=== PATIENT | female | born 1980 | race Caucasian/White ===

== ENCOUNTER 2022-05-27 11:44 | Emergency (ER) | payer MEDICAID ==
[~2022-05-27] VITALS: Ht 162.6 cm; Wt 85.7 kg
[2022-05-27 11:49] VITALS: BP 114/78
--- NOTE | 2022-05-27 11:54 | NUR ---
Pt ambulated to bed 09.
[2022-05-27] MEDS ORDERED: CYCL-711 PO (12:29)
[2022-05-27] MEDS ORDERED: LID5T TP (12:29)
[2022-05-27] MEDS ORDERED: NITR100C7 PO (12:29)
[2022-05-27] MEDS ORDERED: IBUP-2213 PO (12:29)
[2022-05-27] MEDS ORDERED: GABA300C PO (12:34)
--- NOTE | 2022-05-27 12:46 | NUR ---
Patient discharged with v/s stable. Written and verbal after care instructions given and explained. Patient verbalized understanding. Ambulatory with steady gait. All questions addressed prior to discharge. Advised to follow up with PMD.
== END 2022-05-27 12:46 | disposition home or self-care (01) ==
LOC: MED 11:44
DX: N39.0 Urinary tract infection, site not specified (principal); M54.50 Low back pain, unspecified; G89.29 Other chronic pain; Z79.899 Other long term (current) drug therapy
CPT/HCPCS: 81002; 81025; 87086; 99283